=== PATIENT | female | born 1935 | race Caucasian/White ===

== ENCOUNTER 2016-08-08 18:08 | Emergency (ER) | payer MEDICARE, OTHER ==
[~2016-08-08] VITALS: Ht 162.6 cm; Wt 74.5 kg
[~2016-08-08 18:08] MED LIST: APIX5TAB PO; CALC200T3 PO; FAMO-79 PO; IPRA4AER INH; LEVO500T33 PO; MOME220A2 INH; OMEP-110 PO; OXYC5CAP4 PO; OXYGEN INH; PRED20TA PO; PREG25CA PO; PREG50CA PO; TIOT18CA INH
[2016-08-08 20:02] LABS: BLOOD UREA NITROGEN 12 mg/dL (7-18)
[2016-08-08 23:03] VITALS: BP 157/85
== END 2016-08-08 23:13 | disposition home or self-care (01) ==
LOC: ED 21:19
DX: S16.1XXA Strain of muscle, fascia and tendon at neck level, initial encounter (principal); S39.012A Strain of muscle, fascia and tendon of lower back, initial encounter; S76.012A Strain of muscle, fascia and tendon of left hip, initial encounter; R51 Headache; M54.9 Dorsalgia, unspecified; G89.29 Other chronic pain; E78.00 Pure hypercholesterolemia, unspecified; V49.59XA Passenger injured in collision with other motor vehicles in traffic accident, initial encounter; Y93.89 Activity, other specified; Y99.8 Other external cause status; Y92.488 Other paved roadways as the place of occurrence of the external cause
CPT/HCPCS: 36415; 70450; 71010; 72110; 72125; 80048; 82040; 85025; 85610; 99285